=== PATIENT | female | born 1965 | race Caucasian/White ===

== ENCOUNTER → 2016-12-22 | Outpatient (CLI) | payer OTHER | LOC: LAB 16:19 | PROVIDERS: ATTEND Internal Medicine | DX: R94.6 Abnormal results of thyroid function studies (principal) | CPT/HCPCS: 36415; 84439 ==

== ENCOUNTER 2017-01-08 15:20 | Inpatient (IN) | payer OTHER ==
[2017-01-08] MEDS ORDERED: Sodium Chloride 0.9% 1,000 ML PRIMARY IV ONE (15:35)
[2017-01-08] MEDS ORDERED: NORMAL SALINE 10 ML SYRINGE FLUSH IVP PRN ×2 (15:35→21:04)
[2017-01-08 15:58] LABS: BASOPHILS # (AUTO) 0.09 10*3/UL; BASOPHILS % (AUTO) 1.5 % (0-1); EOSINOPHILS # (AUTO) 0.12 10*3/UL; EOSINOPHILS % (AUTO) 1.9 % (0-8); HEMATOCRIT 41.6 % (37.0-47.0); HEMOGLOBIN 14.1 g/dL (12.0-16.0); LYMPHOCYTES # (AUTO) 1.76 10*3/uL; MEAN CORPUSCULAR HEMOGLOBIN 27.3 PG (27-31); MEAN CORPUSCULAR HGB CONC 33.9 g/dL (33-37); MEAN CORPUSCULAR VOLUME 80.6 FL (81-99); MEAN PLATELET VOLUME 9.7 FL (7.4-12.2); MONOCYTES # (AUTO) 0.39 10*3/UL (0.3-0.8); MONOCYTES % (AUTO) 6.3 % (5-15); NEUTROPHILS # (AUTO) 3.83 10*3/UL; NEUTROPHILS % (AUTO) 61.9 % (50-80); RED BLOOD COUNT 5.16 10^6/uL (4.20-5.40)
[2017-01-08 15:59] LABS: PLATELET MORPHOLOGY COMMENT NORMAL MORPHOLOGY (NORM); RBC MORPHOLOGY COMMENT NORMAL MORPHOLOGY (NORM); WBC MORPHOLOGY COMMENT NORMAL MORPHOLOGY (NORM)
--- NOTE | 2017-01-08 16:04 | EKG ---
[address] [address] Measurements Intervals [place] Rate: 135 P: 47 WA: 132 QRS: 29 QRSD: 92 T: 35 QT: 331 QTc: 410 Interpretive Statements SINUS TACHYCARDIA NONSPECIFIC ST & T-WAVE ABNORMALITY ABNORMAL RHYTHM ECG Compared to ECG 12/12/2014 11:06:33 T-wave abnormality now present Sinus rhythm no longer present Sinus arrhythmia no longer present Electronically Signed On 01-10-17 14:19:30 MDT by Torsten Norton [id number]
[2017-01-08 16:10] LABS: BLOOD UREA NITROGEN 9 mg/dL (7-22); CALCIUM 9.2 mg/dL (8.7-10.7); EST GLOMERULAR FILTRATION 59 (>60 ml/min/1.73m(2)); SERUM ALBUMIN 4.2 g/dL (3.5-4.8)
[2017-01-08 16:11] LABS: SALICYLATE < 1.0 mg/dl (0-20)
--- NOTE | 2017-01-08 17:15 | PDOC ---
Psych/Suicidal/OD HPI - General Chief Complaint: Accidental Ingestion /Overdose Stated Complaint: took medications Date Seen by Provider: 01/08/17 Time Seen by Provider: 13:30 Source: POSITIVE: Patient, Police, RN/MD ([facility] counselor) Exam Limitations: POSITIVE: No limitations Nurse's Notes Reviewed & Considered: Yes - History of Present Illness Initial Comments: The patient is a [age] year old female who is brought emergency room by police officers. According to police officers, the patient's called them because the patient was making suicidal threats. The patient "took some of her medications "shortly before the called the police. The patient probably took 4 of her 1 mg Ativan tablets. The patient has been depressed lately mainly due to marital difficulties. She states that "my abuses me and won't support me ". Patient states that she "just wants to ". She also made similar statements to the police. Upon arrival the patient was initially very sullen and would not communicate, but the patient gradually opened up and communicated well with the medical staff. Timing: REPORTS: Gradual Duration: Unknown Severity: Moderate Quality: REPORTS: Other (Patient denies any pain anywhere) Intent: REPORTS: Suicide Context: REPORTS: Spouse Associated Symptoms: REPORTS: Depressed, Suicidal Thoughts, Ingestion (Patient probably ingested a few lorazepam tablets) How did ingestion/attempt come to attention: Patient ingested some pills at home and told her that she wanted to . then called the police and the police brought the patient to the emergency room, as above. Arrived By: REPORTS: Police Similar Symptoms Previously: No Recent Care Received: REPORTS: Denies Any Prior Injuries Related to Current Complaint?: No - Patient Home Medications Home Medications: Home Medications Medication Instructions Recorded Confirmed Lorazepam [Ativan] 1 mg PO PRN 06/21/12 01/08/17 Latanoprost [Xalatan] 1 drop OP HS 1 Days 09/25/13 01/08/17 Estradiol [Estrace] 1 gm VAGINAL 3XW #1 tube 02/19/14 01/08/17 Cetirizine HCl 10 mg PO DAILY tab 07/31/15 01/08/17 Venlafaxine HCl [Effexor Xr] 1.5 cap PO DAILY cap 04/28/16 01/08/17 Levothyroxine Sodium 1 tab PO DAILY #30 tab 05/05/16 01/08/17 HydrOXYzine Cap [Vistaril Cap] 25 mg PO PRN 01/08/17 01/08/17 LORazepam Tab [Ativan Tab] 1 mg PO PRN 01/08/17 01/08/17 Lansoprazole [Prevacid] 30 mg PO DAILY 01/08/17 01/08/17 Promethazine HCl [Phenergan] 25 mg PO PRN 01/08/17 01/08/17 Ranitidine HCl [Zantac 75] 75 mg PO DAILY 01/08/17 01/08/17 Valsartan/Hydrochlorothiazide 1 each PO DAILY 01/08/17 01/08/17 [Diovan Hct 320-12.5 mg Tab] Zolpidem Tartrate 5 mg PO DAILY 01/08/17 01/08/17 - Patient Allergies Allergies/Adverse Reactions: Allergies Allergy/AdvReac Type Severity Reaction Status Date / Time gabapentin Allergy Intermediate RASH Verified 01/08/17 15:35 latex Allergy Intermediate RASH Verified 01/08/17 15:35 carbamazepine [From Tegretol] Allergy NOT Verified 01/08/17 15:35 APPLICABLE lamotrigine [From Lamictal] AdvReac Severe Sores on Verified 01/08/17 15:35 face bupropion HCl AdvReac Intermediate Sores on Verified 01/08/17 15:35 [From Wellbutrin] legs duloxetine HCl AdvReac Intermediate NAUSEA Verified 01/08/17 15:35 [From Cymbalta] trazodone AdvReac Intermediate Disorientat Verified 01/08/17 15:35 ion zonisamide [From Zonegran] AdvReac Intermediate Disoriented Verified 01/08/17 15 :35 buspirone HCl [From BuSpar] AdvReac NAUSEA Verified 01/08/17 15:35 cefuroxime axetil AdvReac DIZZINESS Verified 01/08/17 15:35 [From Ceftin] Past Medical History - heen HEENT History: Glaucoma Additional HEENT History: b/l hearing aids Cardiovascular History: Denies History Respiratory History: Denies History Gastrointestinal History: Denies History Additional Gastrointestinal History: EPIGASTRIC PAIN/ LUQ PAIN Genitourinary History: Denies History Endocrine History: Denies History, Hypothyroidism Musculoskeletal History: Denies History Prosthesis or Implant: No Neurological History:  Additional Neurological History: HEADACHES Blood Disorders: Denies History Psychiatric History: Depression History of Sexually Transmitted Diseases: No LMP: unk Cancer History: Denies History In Past Year Been Physically Harmed or Verbally Threatened: No (pt will not answer) History of MDRO: No History of Other Communicable Diseases: No Tobacco Use: Unknown If Ever Smoked Alcohol Use: Rarely Substance Use Type: None Previous Surgical History: Yes Type / Date of Surgery: T&A/ APPY/ HYST WITH BSO/ C SECTION/ BILAT CTR/ LAP BAND / UMBILICAL HERNIA Anesthesia Reactions: No Malignant Hyperthermia: No Significant Family History: No pertinent family hx Past Medical History Reviewed: Reviewed - No Changes ROS - Limitations ROS Limitations: No Limitations Constitution: REPORTS: Denies Symptoms Cardiovascular: REPORTS: Denies Cardiac Symptoms Respiratory: REPORTS: Denies Resp Symptoms Neurological: REPORTS: Denies Neuro Symptoms Gastrointestinal: REPORTS: Denies GI Symptoms Endocrine: REPORTS: Denies Symptoms Musculoskeletal: REPORTS: Denies MS Symptoms Genitourinary: REPORTS: Denies Symptoms Eyes: REPORTS: Denies Symptoms ENT: REPORTS: Denies Symptoms Skin: REPORTS: Denies Skin Symptoms Lympathic: REPORTS: Denies Lympathic Symptoms Immunologic: POSITIVE: Denies Symptoms Psychiatric: POSITIVE: Depression, Suicidal Thoughts Psych/Suicidal/OD Exam - General Appearance General Appearance: POSITIVE: No Acute Distress, Alert - HEENT HEENT: POSITIVE: Head Inspection Nml, Eyes Inspection Nml, Ears Inspection Nml, Nose Inspection Nml, Oral/Dental Inspect. Nml, Pharynx Inspect. 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 Intact as Tested Sensory/Motor: POSITIVE: Normal Motor Response, Normal Sensory Response, Normal Reflexes, Normal Gait When asked, pt ADMITS continued consideration of suicide:: Yes - Neck/Back Neck/Back: POSITIVE: Normal Inspection, Supple - Respiratory Respiratory: POSITIVE: No Respiratory Distress, Breath Sounds Normal - CVS Cardiovascular: POSITIVE: Regular Rate and Rhythm, Heart Sounds Normal, Equal Pulses, Strong Pulses Peripheral Pulses: Radial (R): 2+, Radial (L): 2+ - Abdomen Abdomen: Soft: (All Quadrants), Normal Bowel Sounds: (All Quadrants), Denies Tenderness: (All Quadrants), No Splenomegaly: (All Quadrants), No Hepatomegaly: (All Quadrants), No Guarding: (All Quadrants), No Rebound: (All Quadrants), No Palpable Pulse: (All Quadrants), No Palpabale Mass: (All Quadrants), No Distention: (All Quadrants), No Rigidity: (All Quadrants) - Skin Skin: POSITIVE: Intact, Normal For Race, Warm, Dry, No Rash - Extremities Extremity: Non-Tender: (All Extremities), Normal ROM: (All Extremities), Normal Inspection: (All Extremities) Psych/Suicidal/OD Progress - Results Reviewed by me Lab Results Reviewed: Yes Lab Results:: Laboratory Results 01/08/17 Range/Units 15:50 WBC 6.19 (4.8-10.8) 10^3/uL RBC 5.16 (4.20-5.40) 10^6/uL Hgb 14.1 (12.0-16.0) g/dL Hct 41.6 (37.0-47.0) % MCV 80.6 L (81-99) FL MCH 27.3 (27-31) PG MCHC 33.9 (33-37) g/dL RDW Std Deviation 41.1 (39-50) fL RDW Coeff of Cm 14.3 (11.5-14.5) % Plt Count 258 (140-350) 10*3/uL MPV 9.7 (7.4-12.2) FL Immature Gran % (Auto) 0 (0-5) % Neut % (Auto) 61.9 (50-80) % Lymph % (Auto) 28.4 (10-50) % [place] % (Auto) 6.3 (5-15) % Eos % (Auto) 1.9 (0-8) % Baso % (Auto) 1.5 H (0-1) % Immature Gran # (Auto) 0 10*3/UL Neut # (Auto) 3.83 10*3/UL Lymph # (Auto) 1.76 10*3/uL [place] # (Auto) 0.39 (0.3-0.8) 10*3/UL Eos # (Auto) 0.12 10*3/UL Baso # (Auto) 0.09 10*3/UL WBC Morphology Comment Normal morphology (NORM) Plt Morphology Comment Normal morphology (NORM) RBC Morph Comment Normal morphology (NORM) Sodium 139 (135-145) meq/L Potassium 3.8 (3.8-5.2) meq/L Chloride 106 (98-112) meq/L Carbon Dioxide 22 L (23-33) meq/L Anion Gap 11 (5-20) BUN 9 (7-22) mg/dL Creatinine 1.0 (0.50-1.20) mg/dL Estimated GFR 59 (>60 ml/min/1.73m(2)) BUN/Creatinine Ratio 9.00 (6-20) Glucose 125 H (78-110) mg/dL Calculated Osmolality 287.0 (267-292) mOsm/kg Calcium 9.2 (8.7-10.7) mg/dL Total Bilirubin 0.4 (0.3-1.2) mg/dL AST 23 (8-39) IU/L ALT 32 (9-52) IU/L Alkaline Phosphatase 93 (38-126) IU/L Total Protein 7.3 (6.1-8.0) g/dL Albumin 4.2 (3.5-4.8) g/dL Globulin 3.1 (2.50-4.10) g/dL Albumin/Globulin Ratio 1.30 (1.3-2.0) mg/g TSH 4.05 (0.2700-4.2000) uIU/mL Salicylates < 1.0 (0-20) mg/dl Acetaminophen < 10.0 (0-30) ug/mL Serum Alcohol < 10 (0-10) mg/dL EKG Interpreted/Reviewed By Me:: Yes (sinus tachycardia) EKG Interpretation:: POSITIVE: Normal Intervals, Normal Slemp, Normal QRS, Normal ST/T, Abnormal EKG (Sinus tachycardia). NEGATIVE: Normal Sinus Rhythm, Normal Rate - Patient's Progress Pain Medication Addressed: POSITIVE: Not Applicable School/Work Release Addressed: POSITIVE: Not Applicable Re-Examine Time: 17:05 Re-Examine Comment: Patient is being evaluated by counselor from [employer]. Heart rate 90/m. Patient denies any physical symptoms. Status: POSITIVE: Unchanged, Re-Examined Poison Control Notification (name of person in comment): No - Medical Clearance for Psych Referral Toxic Causes: NEGATIVE: PCP, Amphetamines, Hallucinogens, Acetaminophen, ASA, ETOH, Other Toxic Ingestion, Other Infectious Causes: NEGATIVE: Meningitis, Encephalitis, Sepsis, Other Metabolic Causes: NEGATIVE: Thyroid, Hypoglycemia, Drug Withdrawal, Hypoxemia, Electrolytes, Other Neurological/Vascular Causes: NEGATIVE: CVA, TIA, Seizure, Trauma, Other Cleared medically for psychiatric referral: Yes - Consult Consult (If Yes, Name of Consulting MD & Time Called): Yes ([facility] [facility] counselor, 1500) Consulting MD will see pt:: POSITIVE: In ED, Recommended Transfer Counseled: POSITIVE: Patient, RE: Lab Results, RE: DX, RE: Need for F/U Patient Care Time - Estimated PCT Patient Care Time (In Minutes): 50 Vital Signs - Recent Vital Signs Vital Signs: Vital Signs (Last 8 hours) Temp Pulse Resp Pulse Ox 01/08/17 16:10 97.2 F 76 18 96 - VS Reviewed Vital Signs Reviewed: Yes Discharge Clinical Impression: Suicidal ideation Discharge Disposition: Transferred to Psychiatric Facility Condition: Fair Date Decision to Transfer to Another Facility: 01/08/17 Time Decision to Transfer to Another Facility: 17:00
[2017-01-08 17:58] LABS: BILIRUBIN,URINE NEGATIVE (NEG); CLARITY,URINE CLEAR (CLEAR); COLOR,URINE YELLOW; GLUCOSE, URINE (UA) NEGATIVE (NEG); NITRATE,URINE NEGATIVE (NEG); OCCULT BLOOD,URINE NEGATIVE (NEG); PROTEIN,URINE NEGATIVE (NEG); UROBILINOGEN,URINE 0.2 EU/dL (0.2)
[2017-01-08 18:09] LABS: AMPHETAMINE SCREEN NEGATIVE (NEG); CANNABINOID SCREEN,URINE NEGATIVE (NEG); COCAINE SCREEN NEGATIVE (NEG); METHADONE URINE SCREEN NEGATIVE (NEG); METHAMPHETAMINES SCREEN,URINE NEGATIVE (NEG); OPIATE SCREEN,URINE POSITIVE (NEG); URINE SAMPLE TYPE CATH SPECIMEN; URINE SPECIFIC GRAVITY - MAN 1.009
[2017-01-08] MEDS ORDERED: Ondansetron ODT Tab 4 MG TAB PO ONE ×2 (18:30→18:33)
[2017-01-08 19:20] LABS: ABG BASE EXCESS -3 MMOL/L (-2-2); ABG OXYGEN SATURATION 94 % (90-100); ABG PCO2 33 MMHG (34-38); ABG PH 7.43 (7.35-7.45); ABG PO2 70 MMHG (65-75); ALLEN TEST yes; COLLECTION SITE L Brachial
--- NOTE | 2017-01-08 19:33 | EKG ---
[address] [address] Measurements Intervals [place] Rate: 126 P: 46 [place]: 148 QRS: 49 QRSD: 89 T: 50 QT: 396 QTc: 470 Interpretive Statements SINUS TACHYCARDIA NONSPECIFIC ST & T-WAVE ABNORMALITY PROLONGED QTc ABNORMAL RHYTHM ECG Compared to ECG 01/08/2017 prolonged QTc now present Electronically Signed On 01-10-17 14:18:44 MDT by Torsten Norton [id number]
--- NOTE | 2017-01-08 19:40 | DI ---
CLINICAL HISTORY: Confusion and tachycardia. PREVIOUS EXAM: April 05, 2014. FINDINGS/TECHNIQUE: Multiple helically acquired CT images are obtained through the brain without con trast, and demonstrate stable mild age related volume loss unchanged from the prior exam. There is no mass, hemorrhage or midline shift. The surrounding soft tissue and osseous structures are unremarkable. The paranasal sinuses and intraorbital structures are unremarkable. IMPRESSION: 1. No acute intracranial pathology.
[2017-01-08] MEDS ORDERED: ONDANSETRON 4 MG/2 ML VIAL IV PRN (21:04)
[2017-01-08] MEDS ORDERED: LIDOCAINE W/ SODIUM BICARB 0.5 ML SYR SUBD PRN (21:04)
[2017-01-08] MEDS: Sodium Chloride 0.9% 1,000 ML PRIMARY IV SCH (21:19)
--- NOTE | 2017-01-08 21:22 | PDOC ---
History and Physical - History of Present Illness Date and Time of Service: 01/08/2017 9:15 PM Chief Complaint: Overdose today with unknown medications probably Ativan History of Present Illness: This is a 51 years old female with medical history significant for history of depression who was brought to the hospital by the police officers as the patient called them because she was making suicidal threats. She took some of her medications before the called the police. The patient herself could not tell me how many or what kind of pills she took. The ER notes talked about may be 4 pills of 1 mg Ativan. Apparently she's been depressed she had a previous history of admission to psych units before. The patient had few test in the ER they were all negative however they were thinking of sending her to [facility] but she is tachycardic and sleepy so she was admitted to to the hospital for observation. The patient mentioned to the ER physician that she just wanted to . When she came into the floor the patient is sleepy but arousable she says she took pills but she couldn't tell me how many and what kind of pills, she took the pills because she is depressed because of her and the her [id number] but she did not elaborate. She did say that she was admitted before to psych unit but she didn't tell me when and where. She did say that she attempted suicide before but she couldn't tell me when and by what means. Patient was seen by [facility] in the ER, the counselor did mention to me that she passed her information to [facility] but she did not hear from them. The patient is sleepy but as I said arousable and is not very cooperative with the history taking. The rest of the medical history is taking from the previous medical records. She denied complaints she denied chest pain, shortness of breath, headaches, vomiting. Past Medical History Medical History: 1. History of depression on Effexor. 2. History of GERD. 3. Was diagnosed last year with hypothyroidism but apparently she is not taking the medication now Surgical History: 1. History of lap band surgery. 2. History of hysterectomy and bilateral salpingo-oophorectomy. 3. Appendectomy. 4. Umbilical herniorrhaphy Pertinent Family History: did not answer Tobacco Use: Unknown If Ever Smoked Substance Use Type: None Alcohol Use: None (She denied smoking, drinking or drug usage. She denies so the question whether she takes pain medications.) Medication / Allergies Home Medications: Home Medications Medication Instructions Recorded Confirmed Type Lorazepam [Ativan] 1 mg PO PRN 06/21/12 01/08/17 History Latanoprost [Xalatan] 1 drop OP HS 1 Days 09/25/13 01/08/17 Clinic Estradiol [Estrace] 1 gm VAGINAL 3XW #1 tube 02/19/14 01/08/17 Clinic RX: Cetirizine HCl 10 mg PO DAILY tab 07/31/15 01/08/17 History Venlafaxine HCl [Effexor Xr] 1.5 cap PO DAILY cap 04/28/16 01/08/17 History RX: Levothyroxine Sodium 1 tab PO DAILY #30 tab 05/05/16 01/08/17 Clinic LORazepam Tab [Ativan Tab] 1 mg PO PRN 01/08/17 01/08/17 History Lansoprazole [Prevacid] 30 mg PO DAILY 01/08/17 01/08/17 History Promethazine HCl [Phenergan] 25 mg PO PRN 01/08/17 01/08/17 History RX: HydrOXYzine Cap [Vistaril 25 mg PO PRN 01/08/17 01/08/17 History Cap] RX: Zolpidem Tartrate 5 mg PO DAILY 01/08/17 01/08/17 History Ranitidine HCl [Zantac 75] 75 mg PO DAILY 01/08/17 01/08/17 History Valsartan/Hydrochlorothiazide 1 each PO DAILY 01/08/17 01/08/17 History [Diovan Hct 320-12.5 mg Tab] Allergies/Adverse Reactions: Allergies Allergy/AdvReac Type Severity Reaction Status Date / Time gabapentin Allergy Intermediate RASH Verified 01/08/17 15:35 latex Allergy Intermediate RASH Verified 01/08/17 15:35 carbamazepine [From Tegretol] Allergy NOT Verified 01/08/17 15:35 APPLICABLE lamotrigine [From Lamictal] AdvReac Severe Sores on Verified 01/08/17 15:35 face bupropion HCl AdvReac Intermediate Sores on Verified 01/08/17 15:35 [From Wellbutrin] legs duloxetine HCl AdvReac Intermediate NAUSEA Verified 01/08/17 15:35 [From Cymbalta] trazodone AdvReac Intermediate Disorientat Verified 01/08/17 15:35 ion zonisamide [From Zonegran] AdvReac Intermediate Disoriented Verified 01/08/17 15 :35 buspirone HCl [From BuSpar] AdvReac NAUSEA Verified 01/08/17 15:35 cefuroxime axetil AdvReac DIZZINESS Verified 01/08/17 15:35 [From Ceftin] Review of Systems - Review of Systems All Systems: Reviewed & No Additional Complaints Except as Stated Exam - Vitals Vital Signs: Vital Signs Pulse Ox 94 Oxygen Delivery Method Room Air - General General Appearance: POSITIVE: Obese Additional General Exam Details: Sleepy but arousable - Head Head Exam: POSITIVE: Normal Inspection - Eye Eye Exam: POSITIVE: Normal Appearance - ENT ENT Exam: POSITIVE: Normal Exam - Neck Neck Exam: POSITIVE: Normal Inspection, No Lymphadenopathy Additional Neck Exam Details: No neck stiffness - Cardiovascular Cardiovascular Exam: POSITIVE: RRR, Tachycardia - GI/Abdominal GI/Abdominal Exam: POSITIVE: Normal Bowel Sounds, Non Tender, Non Distended, Soft, No Organomegaly - Rectal Rectal Exam: POSITIVE: Deferred - External Exam: POSITIVE: Deferred - Extremities Extremities Exam: POSITIVE: Normal Inspection - Back Back Exam: POSITIVE: Normal Inspection - Neurological Neurological Exam: POSITIVE: CN II-XII Intact, No Facial Droop Additional Neurological Exam Details: Sleepy but arousable moving all limbs. She did not answer question about the day or the month, but she knows she is in the hospital, she knows her name. She is moving all her limbs. No co-oeprative with instructions though but no obvious weakness. [place] is negative - Psychiatric Psychiatric Exam: POSITIVE: Flat Affect Results - Labs CBC and BMP: 01/09/17 06:47 01/08/17 15:50 - EKG Data -: EKG Interpreted by Me (EKG showed sinus tachycardia, nonspecific ST changes) - Imaging Status: Report Reviewed by Me (CT head was negative) Assessment and Plan - Patient Problems (1) Drug overdose Current Visit: Yes Status: Acute Comment: Unknown medication, she is positive for benzodiazepine and opiates. Lorazepam is listed as one of her medications. I don't see any opiate listed though. I think will provide supportive care will put her on IV fluid watch her heart rate and blood pressure. Watch her oxygenation. Repeat her labs in the morning. (2) Tachycardia Current Visit: Yes Status: Acute Comment: Maybe secondary to whatever medication she took, overdose of Effexor can cause this. We'll watch her overnight. will continue IV fluied Will check T4 level. TSH is normal though.
[2017-01-09] MEDS: Sodium Chloride 0.9% 1,000 ML PRIMARY IV SCH (05:18)
[2017-01-09 06:08] VITALS: TEMP 98
[2017-01-09 06:48] LABS: BASOPHILS # (AUTO) 0.06 10*3/UL; BASOPHILS % (AUTO) 0.7 % (0-1); EOSINOPHILS # (AUTO) 0.06 10*3/UL; EOSINOPHILS % (AUTO) 0.7 % (0-8); HEMATOCRIT 38.2 % (37.0-47.0); HEMOGLOBIN 12.9 g/dL (12.0-16.0); LYMPHOCYTES # (AUTO) 1.94 10*3/uL; MEAN CORPUSCULAR HEMOGLOBIN 27.6 PG (27-31); MEAN CORPUSCULAR HGB CONC 33.8 g/dL (33-37); MEAN CORPUSCULAR VOLUME 81.8 FL (81-99); MEAN PLATELET VOLUME 9.8 FL (7.4-12.2); MONOCYTES # (AUTO) 0.65 10*3/UL (0.3-0.8); MONOCYTES % (AUTO) 7.2 % (5-15); NEUTROPHILS % (AUTO) 69.7 % (50-80); RED BLOOD COUNT 4.67 10^6/uL (4.20-5.40)
[2017-01-09 06:50] LABS: PLATELET MORPHOLOGY COMMENT NORMAL MORPHOLOGY (NORM); RBC MORPHOLOGY COMMENT NORMAL MORPHOLOGY (NORM); WBC MORPHOLOGY COMMENT NORMAL MORPHOLOGY (NORM)
[2017-01-09 07:22] LABS: BLOOD UREA NITROGEN 8 mg/dL (7-22); BUN/CREATININE RATIO 8.88 (6-20); CALCIUM 8.3 mg/dL (8.7-10.7); EST GLOMERULAR FILTRATION > 60 (>60 ml/min/1.73m(2)); SERUM ALBUMIN 3.3 g/dL (3.5-4.8)
--- NOTE | 2017-01-09 07:38 | PDOC(PROG) ---
Date and Time of Service: 01/09/2017 7:32 AM Interval History: Subjective Patient is more awake today compared to last night, however she looks depressed , she knows she is in the hospital because she took some pills, she didn't tell me though again how many and what kind. She said she took them because she is depressed because of her and her [id number]. She did say that she was in a [facility] before in [place] but she didn't tell me why. She took the pills because she said she wanted to . She is still depressed. She doesn't drink doesn't smoke and no drugs. She said she had previous carpal tunnel surgery and weight loss surgery. Denying pain,no nausea and no shortness of breath. Objective : Data - Labs CBC and BMP: 01/09/17 06:47 01/09/17 06:47 Labs - Last 24 Hours: Laboratory Results 01/09/17 Range/Units 06:47 WBC 9.03 (4.8-10.8) 10^3/uL RBC 4.67 (4.20-5.40) 10^6/uL Hgb 12.9 (12.0-16.0) g/dL Hct 38.2 (37.0-47.0) % MCV 81.8 (81-99) FL MCH 27.6 (27-31) PG MCHC 33.8 (33-37) g/dL RDW Std Deviation 42.1 (39-50) fL RDW Coeff of Cm 14.4 (11.5-14.5) % Plt Count 229 (140-350) 10*3/uL MPV 9.8 (7.4-12.2) FL Immature Gran % (Auto) 0.2 (0-5) % Neut % (Auto) 69.7 (50-80) % Lymph % (Auto) 21.5 (10-50) % [place] % (Auto) 7.2 (5-15) % Eos % (Auto) 0.7 (0-8) % Baso % (Auto) 0.7 (0-1) % Immature Gran # (Auto) 0.02 10*3/UL Neut # (Auto) 6.30 10*3/UL Lymph # (Auto) 1.94 10*3/uL [place] # (Auto) 0.65 (0.3-0.8) 10*3/UL Eos # (Auto) 0.06 10*3/UL Baso # (Auto) 0.06 10*3/UL WBC Morphology Comment Normal morphology (NORM) Plt Morphology Comment Normal morphology (NORM) RBC Morph Comment Normal morphology (NORM) Sodium 141 (135-145) meq/L Potassium 4.2 (3.8-5.2) meq/L Chloride 108 (98-112) meq/L Carbon Dioxide 25 (23-33) meq/L Anion Gap 8 (5-20) BUN 8 (7-22) mg/dL Creatinine 0.9 (0.50-1.20) mg/dL Estimated GFR > 60 (>60 ml/min/1.73m(2)) BUN/Creatinine Ratio 8.88 (6-20) Glucose 78 (78-110) mg/dL Calculated Osmolality 288.0 (267-292) mOsm/kg Calcium 8.3 L (8.7-10.7) mg/dL Total Bilirubin 0.3 (0.3-1.2) mg/dL AST 20 (8-39) IU/L ALT 25 (9-52) IU/L Alkaline Phosphatase 72 (38-126) IU/L Total Protein 6.0 L (6.1-8.0) g/dL Albumin 3.3 L (3.5-4.8) g/dL Globulin 2.7 (2.50-4.10) g/dL Albumin/Globulin Ratio 1.20 L (1.3-2.0) mg/g Objective : Exam - General General Appearance: Obese Additional General Exam Details: Awake, avoid eye contact, looks down, doesn't say much but answer questions appropriately. - Head Head Exam: Normal Inspection, Atraumatic - Eye Eye Exam: Normal Appearance - ENT ENT Exam: Normal Exam - Neck Neck Exam: Normal Inspection - Respiratory Respiratory Exam: Clear to Auscultation - Bilaterally - Cardiovascular Cardiovascular Exam: RRR - GI/Abdominal GI/Abdominal Exam: Normal Bowel Sounds, Non Tender, Non Distended, Soft - Rectal Rectal Exam: Deferred - External Exam: Deferred - Extremities Extremities Exam: Normal Inspection - Back Back Exam: Normal Inspection - Neurological Neurological Exam: Alert, Oriented x 3, CN II-XII Intact, Moves All Extremities Equally - Psychiatric Psychiatric Exam: Flat Affect - Integumentary Integumentary Exam: Normal Color Assessment and Plan - Patient Problems (1) Drug overdose Current Visit: Yes Status: Acute Comment: She is awake today, she is depressed, did not answer the question whether she will attempt suicide again, will call [facility] to reassess her. (2) Tachycardia Current Visit: Yes Status: Acute Comment: Heart rate improved. I think it is probably secondary to the medication. Labs remain fine.
--- NOTE | 2017-01-09 09:34 | EKG ---
[address] [address] Measurements Intervals [place] Rate: 93 P: 38 ID: [id number] QRS: 34 QRSD: 89 T: 30 QT: 375 QTc: 426 Interpretive Statements SINUS RHYTHM NONSPECIFIC ST DEPRESSION Compared to ECG 01/08/2017 19:34:21 ST (T wave) deviation now present Sinus tachycardia no longer present T-wave abnormality no longer present Electronically Signed On 01-10-17 14:15:14 MDT by Torsten Norton [id number]
[2017-01-09 10:22] VITALS: RESP 18
--- NOTE | 2017-01-09 10:53 | DCSUMMARY ---
Hospitalization Summary Admit Date: 01/08/17 Discharge Date: 01/09/17 Hospital Course: Transfer diagnoses 1. Drug overdose 2. Suicidal ideation 3. Depression 4. History of lap band surgery before Hospital course This is a 51 years old female with medical history significant for history of depression who was brought to the hospital by the police as the patient ' s called them because she was making suicidal threats. She took some of her medication before the called the police. The patient herself could not tell me how many or what kind of pills she took. The ER notes talked about maybe 4 pills of 1 mg Ativan. Apparently she's been depressed and she had previous history of admission to psych units before. She had few tests in the ER they were negative except toxicology being positive for benzo and opiates. They were thinking of sending her to [facility] but she was tachycardic and sleepy so she was admitted to the hospital. When I first saw her she was arousable she did say that she took pills in but she couldn't tell me how many and what kind, she took the pills because she was depressed because of her and her [id number] but she did not elaborate further. Initially she didn't tell me where she was admitted before but the next day she did say that she was admitted to [facility] in the past. Exam when I saw her apart from being sleepy and tachycardic and did not say much was not much remarkable. Her labs tests were negative and CT of the head was negative. EKG initially when she came in showed sinus tachycardia. I thought this probably secondary to the medication she took. We watched her overnight gave her some fluid. The next day she was in sinus rhythm. She was more awake however she doesn't say much and did not maintain a good eye contact , looked depressed with flat affect. She repeated the same that she took the pills because she is depressed because of her and [id number]. She said she's feeling tired otherwise no other physical complaints. Her exam was not remarkable. She was able to stand up and sit at the edge of the bed. We consulted the [facility] [employer] [facility] again they contacted [facility] who accepted the patient. And she will be transferred there for further care. Laboratory Results 01/08/17 01/08/17 01/08/17 Range/Units 15:35 15:50 17:00 WBC 6.19 (4.8-10.8) 10^3/uL RBC 5.16 (4.20-5.40) 10^6/uL Hgb 14.1 (12.0-16.0) g/dL Hct 41.6 (37.0-47.0) % MCV 80.6 L (81-99) FL MCH 27.3 (27-31) PG MCHC 33.9 (33-37) g/dL RDW Std Deviation 41.1 (39-50) fL RDW Coeff of Cm 14.3 (11.5-14.5) % Plt Count 258 (140-350) 10*3/uL MPV 9.7 (7.4-12.2) FL Immature Gran % (Auto) 0 (0-5) % Neut % (Auto) 61.9 (50-80) % Lymph % (Auto) 28.4 (10-50) % [place] % (Auto) 6.3 (5-15) % Eos % (Auto) 1.9 (0-8) % Baso % (Auto) 1.5 H (0-1) % Immature Gran # (Auto) 0 10*3/UL Neut # (Auto) 3.83 10*3/UL Lymph # (Auto) 1.76 10*3/uL [place] # (Auto) 0.39 (0.3-0.8) 10*3/UL Eos # (Auto) 0.12 10*3/UL Baso # (Auto) 0.09 10*3/UL WBC Morphology Comment Normal morphology (NORM) Plt Morphology Comment Normal morphology (NORM) RBC Morph Comment Normal morphology (NORM) D-Dimer 0.25 (0.00-0.59) mg/L ABG pH (7.35-7.45) ABG pCO2 (34-38) MMHG ABG pO2 (65-75) MMHG ABG HCO3 (22-26) ABG Total CO2 (23-27) MMOL/L ABG O2 Saturation (90-100) % ABG Base Excess (-2-2) MMOL/L Danilo Test FiO2 Sodium 139 (135-145) meq/L Potassium 3.8 (3.8-5.2) meq/L Chloride 106 (98-112) meq/L Carbon Dioxide 22 L (23-33) meq/L Anion Gap 11 (5-20) BUN 9 (7-22) mg/dL Creatinine 1.0 (0.50-1.20) mg/dL Estimated GFR 59 (>60 ml/min/1.73m(2)) BUN/Creatinine Ratio 9.00 (6-20) Glucose 125 H (78-110) mg/dL Calculated Osmolality 287.0 (267-292) mOsm/kg Calcium 9.2 (8.7-10.7) mg/dL Total Bilirubin 0.4 (0.3-1.2) mg/dL AST 23 (8-39) IU/L ALT 32 (9-52) IU/L Alkaline Phosphatase 93 (38-126) IU/L Troponin I < 0.012 (< 0.040) ng/mL NT-Pro-B Natriuret Pep 38.6 (0-125) PG/ML Total Protein 7.3 (6.1-8.0) g/dL Albumin 4.2 (3.5-4.8) g/dL Globulin 3.1 (2.50-4.10) g/dL Albumin/Globulin Ratio 1.30 (1.3-2.0) mg/g TSH 4.05 (0.2700-4.2000) uIU/mL Free T4 (0.93-1.71) ng/dL Ur Collection Type Cath specimen Urine Color Yellow Urine Clarity Clear (CLEAR) Urine pH 6.0 (5.0-8.5) Ur Specific [place] <=1.005 (1.005-1.030) U Specif Grav (Refrac) 1.009 Urine Protein Negative (NEG) mg/dl Urine Glucose (UA) Negative (NEG) mg/dL Urine Ketones Negative (NEG) Urine Occult Blood Negative (NEG) Urine Nitrate Negative (NEG) Urine Bilirubin Negative (NEG) Urine Urobilinogen 0.2 (0.2) EU/dL Ur Leukocyte Esterase Negative (NEG) Ur Culture Indicated? Culture not set Salicylates < 1.0 (0-20) mg/dl Urine Opiates Screen Positive H (NEG) Ur Buprenorphine Negative (NEG) Ur Oxycodone Screen Negative (NEG) Urine Methadone Screen Negative (NEG) Ur Propoxyphene Screen Negative (NEG) Acetaminophen < 10.0 (0-30) ug/mL Barbiturate Screen Negative (NEG) U Tricyclic Antidepress Negative (NEG) Phencyclidine Screen Negative (NEG) Amphetamines Screen Negative (NEG) U Methamphetamines Scrn Negative (NEG) Benzodiazepines Screen Positive H (NEG) Cocaine Screen Negative (NEG) U Marijuana (THC) Screen Negative (NEG) Serum Alcohol < 10 (0-10) mg/dL 01/08/17 01/08/17 01/09/17 Range/Units 18:43 18:46 06:45 WBC (4.8-10.8) 10^3/uL RBC (4.20-5.40) 10^6/uL Hgb (12.0-16.0) g/dL Hct (37.0-47.0) % MCV (81-99) FL MCH (27-31) PG MCHC (33-37) g/dL RDW Std Deviation (39-50) fL RDW Coeff of Cm (11.5-14.5) % Plt Count (140-350) 10*3/uL MPV (7.4-12.2) FL Immature Gran % (Auto) (0-5) % Neut % (Auto) (50-80) % Lymph % (Auto) (10-50) % [place] % (Auto) (5-15) % Eos % (Auto) (0-8) % Baso % (Auto) (0-1) % Immature Gran # (Auto) 10*3/UL Neut # (Auto) 10*3/UL Lymph # (Auto) 10*3/uL [place] # (Auto) (0.3-0.8) 10*3/UL Eos # (Auto) 10*3/UL Baso # (Auto) 10*3/UL WBC Morphology Comment (NORM) Plt Morphology Comment (NORM) RBC Morph Comment (NORM) D-Dimer (0.00-0.59) mg/L ABG pH 7.43 (7.35-7.45) ABG pCO2 33 L (34-38) MMHG ABG pO2 70 (65-75) MMHG ABG HCO3 22 (22-26) ABG Total CO2 23 (23-27) MMOL/L ABG O2 Saturation 94 (90-100) % ABG Base Excess -3 L (-2-2) MMOL/L Danilo Test yes FiO2 21 Sodium (135-145) meq/L Potassium (3.8-5.2) meq/L Chloride (98-112) meq/L Carbon Dioxide (23-33) meq/L Anion Gap (5-20) BUN (7-22) mg/dL Creatinine (0.50-1.20) mg/dL Estimated GFR (>60 ml/min/1.73m(2)) BUN/Creatinine Ratio (6-20) Glucose (78-110) mg/dL Calculated Osmolality (267-292) mOsm/kg Calcium (8.7-10.7) mg/dL Total Bilirubin (0.3-1.2) mg/dL AST (8-39) IU/L ALT (9-52) IU/L Alkaline Phosphatase (38-126) IU/L Troponin I (< 0.040) ng/mL NT-Pro-B Natriuret Pep (0-125) PG/ML Total Protein (6.1-8.0) g/dL Albumin (3.5-4.8) g/dL Globulin (2.50-4.10) g/dL Albumin/Globulin Ratio (1.3-2.0) mg/g TSH (0.2700-4.2000) uIU/mL Free T4 1.03 (0.93-1.71) ng/dL Ur Collection Type Urine Color Urine Clarity (CLEAR) Urine pH (5.0-8.5) Ur Specific [place] (1.005-1.030) U Specif Grav (Refrac) Urine Protein (NEG) mg/dl Urine Glucose (UA) (NEG) mg/dL Urine Ketones (NEG) Urine Occult Blood (NEG) Urine Nitrate (NEG) Urine Bilirubin (NEG) Urine Urobilinogen (0.2) EU/dL Ur Leukocyte Esterase (NEG) Ur Culture Indicated? Salicylates (0-20) mg/dl Urine Opiates Screen (NEG) Ur Buprenorphine (NEG) Ur Oxycodone Screen (NEG) Urine Methadone Screen (NEG) Ur Propoxyphene Screen (NEG) Acetaminophen < 10.0 (0-30) ug/mL Barbiturate Screen (NEG) U Tricyclic Antidepress (NEG) Phencyclidine Screen (NEG) Amphetamines Screen (NEG) U Methamphetamines Scrn (NEG) Benzodiazepines Screen (NEG) Cocaine Screen (NEG) U Marijuana (THC) Screen (NEG) Serum Alcohol (0-10) mg/dL 01/09/17 Range/Units 06:47 WBC 9.03 (4.8-10.8) 10^3/uL RBC 4.67 (4.20-5.40) 10^6/uL Hgb 12.9 (12.0-16.0) g/dL Hct 38.2 (37.0-47.0) % MCV 81.8 (81-99) FL MCH 27.6 (27-31) PG MCHC 33.8 (33-37) g/dL RDW Std Deviation 42.1 (39-50) fL RDW Coeff of Cm 14.4 (11.5-14.5) % Plt Count 229 (140-350) 10*3/uL MPV 9.8 (7.4-12.2) FL Immature Gran % (Auto) 0.2 (0-5) % Neut % (Auto) 69.7 (50-80) % Lymph % (Auto) 21.5 (10-50) % [place] % (Auto) 7.2 (5-15) % Eos % (Auto) 0.7 (0-8) % Baso % (Auto) 0.7 (0-1) % Immature Gran # (Auto) 0.02 10*3/UL Neut # (Auto) 6.30 10*3/UL Lymph # (Auto) 1.94 10*3/uL [place] # (Auto) 0.65 (0.3-0.8) 10*3/UL Eos # (Auto) 0.06 10*3/UL Baso # (Auto) 0.06 10*3/UL WBC Morphology Comment Normal morphology (NORM) Plt Morphology Comment Normal morphology (NORM) RBC Morph Comment Normal morphology (NORM) D-Dimer (0.00-0.59) mg/L ABG pH (7.35-7.45) ABG pCO2 (34-38) MMHG ABG pO2 (65-75) MMHG ABG HCO3 (22-26) ABG Total CO2 (23-27) MMOL/L ABG O2 Saturation (90-100) % ABG Base Excess (-2-2) MMOL/L Danilo Test FiO2 Sodium 141 (135-145) meq/L Potassium 4.2 (3.8-5.2) meq/L Chloride 108 (98-112) meq/L Carbon Dioxide 25 (23-33) meq/L Anion Gap 8 (5-20) BUN 8 (7-22) mg/dL Creatinine 0.9 (0.50-1.20) mg/dL Estimated GFR > 60 (>60 ml/min/1.73m(2)) BUN/Creatinine Ratio 8.88 (6-20) Glucose 78 (78-110) mg/dL Calculated Osmolality 288.0 (267-292) mOsm/kg Calcium 8.3 L (8.7-10.7) mg/dL Total Bilirubin 0.3 (0.3-1.2) mg/dL AST 20 (8-39) IU/L ALT 25 (9-52) IU/L Alkaline Phosphatase 72 (38-126) IU/L Troponin I (< 0.040) ng/mL NT-Pro-B Natriuret Pep (0-125) PG/ML Total Protein 6.0 L (6.1-8.0) g/dL Albumin 3.3 L (3.5-4.8) g/dL Globulin 2.7 (2.50-4.10) g/dL Albumin/Globulin Ratio 1.20 L (1.3-2.0) mg/g TSH (0.2700-4.2000) uIU/mL Free T4 (0.93-1.71) ng/dL Ur Collection Type Urine Color Urine Clarity (CLEAR) Urine pH (5.0-8.5) Ur Specific [place] (1.005-1.030) U Specif Grav (Refrac) Urine Protein (NEG) mg/dl Urine Glucose (UA) (NEG) mg/dL Urine Ketones (NEG) Urine Occult Blood (NEG) Urine Nitrate (NEG) Urine Bilirubin (NEG) Urine Urobilinogen (0.2) EU/dL Ur Leukocyte Esterase (NEG) Ur Culture Indicated? Salicylates (0-20) mg/dl Urine Opiates Screen (NEG) Ur Buprenorphine (NEG) Ur Oxycodone Screen (NEG) Urine Methadone Screen (NEG) Ur Propoxyphene Screen (NEG) Acetaminophen (0-30) ug/mL Barbiturate Screen (NEG) U Tricyclic Antidepress (NEG) Phencyclidine Screen (NEG) Amphetamines Screen (NEG) U Methamphetamines Scrn (NEG) Benzodiazepines Screen (NEG) Cocaine Screen (NEG) U Marijuana (THC) Screen (NEG) Serum Alcohol (0-10) mg/dL Discharge instruction diet regular Activity as started Medications Active Medications Sodium Chloride (Normal Saline) 1,000 mls @ 125 mls/hr PRIMARY IV .Q8H DANII Last Admin: 01/09/17 05:18 Dose: 125 mls/hr Sodium Chloride (Normal Saline 0.9%) 25 mls @ 200 mls/hr IV .Post Infusion PRN PRN Reason: No Primary IV for Flush ONLY Lidocaine HCl (Lidocaine Buffered Inj) 0.5 ml SUBD ONCE PRN PRN Reason: IV Starts Ondansetron HCl (Zofran Inj) 4 mg IV Q4H PRN PRN Reason: NAUSEA / VOMITING Last Admin: 01/08/17 22:22 Dose: 4 mg Sodium Chloride (Saline Flush) 5 - 20 ml IVP BID PRN PRN Reason: Flush Follow-up per [facility] post discharge Condition at transfer was stable for transfer Exam - Vitals Vital Signs: Vital Signs Temperature 98.0 F Temperature Source Oral Pulse Rate [Telemetry] 70 Pulse Rate [Pulse Oximeter] 95 Pulse Rate 81 Respiratory Rate 18 Blood Pressure [Right Arm] 123/66 Blood Pressure [Left Arm] 88/52 Blood Pressure 113/64 Pulse Ox 95 Oxygen Flow Rate 94 Oxygen Delivery Method Room Air Height 5 ft 3 in Weight 162 lb 8 oz Patient Problems - Patient Problem List (1) Drug overdose Status: Acute (2) Tachycardia Status: Acute
== END 2017-01-09 11:05 | DRG 918 ==
LOC: ER 15:20 → MED/SURG 19:52 → ICU 19:55
PROVIDERS: ADMIT Internal Medicine; ATTEND Internal Medicine
DX: T50.902A Poisoning by unspecified drugs, medicaments and biological substances, intentional self-harm, initial encounter (principal); R45.851 Suicidal ideations; R00.0 Tachycardia, unspecified; F32.9 Major depressive disorder, single episode, unspecified
CPT/HCPCS: 36415; 36600; 70450; 80053; 80305; 80320; 80329; 81003; 82803; 83880; 84439; 84443; 84484; 85025; 85379; 90791; 93005; 93010; 94761; 96361; 99284; J2405; J7030